=== PATIENT | female | born 1990 | race Caucasian/White ===

== ENCOUNTER 2017-07-25 20:47 | Inpatient (IN) | payer OTHER ==
[~2017-07-25] VITALS: Ht 170.2 cm; Wt 87.7 kg
[2017-07-25 23:52] VITALS: PULSE 110
[2017-07-26] VITALS (12 sets, daily range): BP systolic 110–117; BP diastolic 56–66; PULSE 70–122; RESP 17–20; Ht 170.2 cm; Wt 87.7 kg
[2017-07-26] MEDS ORDERED: ALB.5NB20 INHALATION (00:24)
[2017-07-26] MEDS ORDERED: MOME13HF INHALATION (00:24)
[2017-07-26] MEDS ORDERED: ALBU2.5V3 NEB (00:24)
[2017-07-26] MEDS ORDERED: IPRATROPIUM (NEB) 0.5 MG/2.5 ML AMP NEB PRN (00:30)
[2017-07-26] MEDS ORDERED: NACL 0.9% 3 ML SYG IV SCH (00:30)
[2017-07-26] MEDS ORDERED: ONDANSETRON 4 MG INJ IV PRN (00:30)
[2017-07-26] MEDS ORDERED: ACETAMINOPHEN 325 MG TAB PO PRN (00:30)
[2017-07-26] MEDS ORDERED: morphine 2 MG INJ IV PRN (00:30)
[2017-07-26] MEDS: SOD CHLORIDE 0.9% 1,000 ML IV SCH ×4 (00:45→20:15)
[2017-07-26] MEDS: LEVALBUTEROL (NEB) 0.31 MG/3 ML AMP HHN PRN ×4 (01:17→19:37)
[2017-07-26 06:52] LABS: ABNORMAL IP MESSAGE 1; LYMPHOCYTES # 0.5 10^3/ul (0.8-2.9); LYMPHOCYTES % 10.9 % (15.0-51.0); MEAN CORPUSCULAR HEMOGLOBIN 29.8 pg (29.0-33.0); MEAN CORPUSCULAR HGB CONC 35.9 g/dl (32.0-37.0); MEAN PLATELET VOLUME 10.9 fl (7.4-10.4); MONOCYTE # 0.3 10^3/ul (0.3-0.9); MONOCYTES % 6.8 % (0.0-11.0); NEUTROPHIL # 3.9 10^3/ul (1.6-7.5); NEUTROPHILS % 82.1 % (39.0-77.0); PLATELET COUNT 189 10^3/UL (140-415); RED CELL DISTRIBUTION WIDTH 14.1 % (11.5-14.5); WHITE BLOOD COUNT 4.7 10^3/ul (4.8-10.8)
[2017-07-26 07:06] LABS: POSITIVE DIFF @See below
[2017-07-26 07:25] LABS: ALBUMIN 3.6 g/dl (3.3-4.9); ALBUMIN/GLOBULIN RATIO 1.12; BILIRUBIN,INDIRECT 0.2 mg/dl (0-1.1); BILIRUBIN,TOTAL 0.2 mg/dl (0.2-1.3); CALCIUM 8.7 mg/dl (8.4-10.2); CREATININE 0.62 mg/dl (0.44-1.00); MAGNESIUM 2.1 mg/dl (1.7-2.5); TOTAL PROTEIN 6.8 g/dl (6.1-8.1)
[2017-07-26] MEDS: METHYLPREDNISOLONE 125 MG INJ IV SCH ×2 (08:12→20:39)
[2017-07-26] MEDS: HEPARIN 5,000 UNIT/0.5 ML VIAL SC SCH ×2 (08:34→20:35)
--- NOTE | 2017-07-26 09:38 | HP ---
Date/Time of Note Date/Time of Note DATE: 07/26/17 TIME: 09:35 Assessment/Plan VTE Prophylaxis VTE Prophylaxis Intervention: SCD's Lines/Catheters IV C[facility]ter Type [facility]from [facility] Saline Lock Urinary Cath still in place: No Assessment/Plan Assessment/Plan ASSESSMENT 26-year-old female with history of asthma diagnosed when she was a child presents with shortness of breath and wheezing secondary to asthma exacerbation PLAN Supplemental oxygen, bronchodilators, antibiotics and steroid. HPI/ROS Admit Date/Time Admit Date/Time Jul 25, 2017 at 23:41 Hx of Present Illness This is a 26-year-old female with a history of asthma diagnosed as a child who initially presented to an outside hospital complaining of shortness of breath and wheezing. She reported associated cough productive of small amounts of whitish and at times greenish sputum. She also reported having had fever and chills 1 day. Patient was treated with bronchodilators and steroid at the outside hospital and there was transferred to [facility] for insurance reasons. She said her asthma has been controlled lately and nowadays only goes to the hospital or have ER visits about once a year. She uses Dulera on a daily basis as needed albuterol. She denied history of intubation PMH/Family/Social Social History Smoking Status: Former smoker Exam/Review of Systems Vital Signs Vitals Vital Signs Date Time Temp Pulse Resp B/P Pulse Ox O2 Delivery O2 Flow Rate FiO2 07/26/17 08:12 122 07/26/17 08:07 98.5 18 117/56 99 07/26/17 07:46 Nasal Cannula 2.0 Intake and Output 07/25/17 07/25/17 07/26/17 15:00 23:00 07:00 Intake Total 1100 ml Balance 1100 ml Exam Constitutional: alert, oriented, well developed Head: atraumatic, normocephalic Eyes: EOMI, PERRL Respiratory: other (There is minimal expiratory wheeze mainly in the right basilar area) Cardiovascular: other Gastrointestinal: non-tender, soft Extremities: normal pulses Labs Result Diagram: 07/26/17 0611 07/26/17 0611 Medications Medications Current Medications Sodium Chloride (NS) 1,000 ml @ 100 mls/hr Q10H IV Last administered on t 00:45; Admin Dose 100 MLS/HR; Start 07/26/17 at 00:15; Stop 07/26/17 at 23: 00 Ondansetron HCl (Zofran Inj) 4 mg Q6H PRN IV NAUSEA AND/OR VOMITING; Start 07/26/17 at 00:30 Methylprednisolone Sodium Succinate (Solu-Medrol) 60 mg Q12 IV Last administered on 07/26/17 08:12; Admin Dose 60 MG; Start 07/26/17 at 09:00 Acetaminophen (Tylenol Tab) 650 mg Q6H PRN PO PAIN LEVEL 1-3 OR FEVER; Start 07/26/17 at 00:30 Morphine Sulfate (morphine) 2 mg Q4H PRN IV PAIN LEVEL 7-10; Start 07/26/17 at 00:30 Heparin Sodium (Porcine) (Heparin (5000 Units/0.5 ml)) 5,000 unit Q12 SC Last administered on 07/26/17 08:34; Admin Dose 5,000 UNIT; Start 07/26/17 at 09:00 Influenza Virus Vaccine (Fluzone) 0.5 ml ONCE ONCE IM* ; Start 07/27/17 at 09:00 ; Stop 07/27/17 at 09:01 DEEPIKA MARCELO MD Jul 26, 2017 09:38
[2017-07-26] MEDS ORDERED: GUAIFENESIN/CODEINE 5ML CUP PO PRN (10:00)
[2017-07-26] MEDS: SALMETEROL/FLUTICASONE 250/50 INHA INH SCH ×2 (10:00→20:36)
[2017-07-26] MEDS: LEVOFLOXACIN 500MG/D5W (PMX) 100 ML IVPB SCH (11:01)
[2017-07-26 11:23] LABS: AADO2 Arterial 45.7 mmHg (7.0-24.0); Allen Test ACCEPTAB; Arterial Base Excess 1.7 mmol/L (-3.0-3); Arterial COHb 0.2 % (0.0-3.0); Arterial Fraction of Oxyhgb 93.7 % (93.0-99.0); Arterial HCO3 24.1 mmol/L (22.0-26.0); Arterial MetHb 0.2 % (0.0-1.5); Arterial Total Hemglobin 15.1 g/dl (12.0-18.0); MODE ROOM AIR
[2017-07-26] MEDS: IPRATROPIUM (NEB) 0.5 MG/2.5 ML AMP NEB SCH ×5 (12:40→23:06)
[2017-07-27] VITALS (10 sets, daily range): BP systolic 101–116; BP diastolic 55–65; PULSE 60–85; RESP 18–20
[2017-07-27] MEDS: IPRATROPIUM (NEB) 0.5 MG/2.5 ML AMP NEB SCH ×4 (02:01→12:41)
[2017-07-27 08:33] LABS: HEMATOCRIT 41.4 % (37.0-47.0); HEMOGLOBIN 14.1 g/dl (12.0-16.0); LYMPHOCYTES # 0.8 10^3/ul (0.8-2.9); LYMPHOCYTES % 15.5 % (15.0-51.0); MEAN CORPUSCULAR HEMOGLOBIN 28.8 pg (29.0-33.0); MEAN CORPUSCULAR HGB CONC 34.1 g/dl (32.0-37.0); MEAN CORPUSCULAR VOLUME 84.5 fl (82.0-101.0); MEAN PLATELET VOLUME 10.8 fl (7.4-10.4); MONOCYTE # 0.5 10^3/ul (0.3-0.9); MONOCYTES % 9.8 % (0.0-11.0); NEUTROPHIL # 3.6 10^3/ul (1.6-7.5); NEUTROPHILS % 74.3 % (39.0-77.0); PLATELET COUNT 216 10^3/UL (140-415); RED CELL DISTRIBUTION WIDTH 14.2 % (11.5-14.5); WHITE BLOOD COUNT 4.9 10^3/ul (4.8-10.8)
[2017-07-27] MEDS ORDERED: INFLUENZA VIRUS VACCINE 0.5 ML (DISPENSING) IM* ONE (09:00)
[2017-07-27 09:03] LABS: CALCIUM 8.9 mg/dl (8.4-10.2); CREATININE 0.65 mg/dl (0.44-1.00); MAGNESIUM 1.8 mg/dl (1.7-2.5); PHOSPHORUS 3.4 mg/dl (2.5-4.9); POTASSIUM 4.1 mmol/L (3.5-5.1)
[2017-07-27] MEDS: LEVOFLOXACIN 500MG/D5W (PMX) 100 ML IVPB SCH (09:07)
[2017-07-27] MEDS: METHYLPREDNISOLONE 125 MG INJ IV SCH (09:07)
[2017-07-27] MEDS: SALMETEROL/FLUTICASONE 250/50 INHA INH SCH (09:07)
[2017-07-27] MEDS: HEPARIN 5,000 UNIT/0.5 ML VIAL SC SCH (09:27)
--- NOTE | 2017-07-27 14:40 | PDOCDIS ---
Discharge Instructions CONDITION Patient Condition: Good HOME CARE INSTRUCTIONS: Diet Instructions: Regular ACTIVITY: Activity Restrictions: No Restrictions FOLLOW UP/APPOINTMENTS Follow-up Plan F/U WITH YOUR PCP IN 1-2 WEEKS OMAR STEWART Jul 27, 2017 14:40
[2017-07-27] MEDS ORDERED: PRED20TA PO (14:41)
--- NOTE | 2017-07-28 18:58 | DS ---
Date/Time of Note Date/Time of Note DATE: 07/28/17 TIME: 18:55 Discharge Summary Admission/Discharge Info Admit Date/Time Jul 25, 2017 at 23:41 Discharge Date/Time Jul 27, 2017 at 16:10 Discharge Diagnosis 1. Asthma exacerbation-resolved Continue home meds Discharged with prednisone Patient Condition: Good Hospital Course Patient is a 26-year-old female with a history of asthma, patient presents with asthma exacerbation. Patient was given antibiotics, breathing treatments and steroids and her exacerbation did resolve. Patient does have home maintenance inhalers as well as albuterol for breakthrough episodes. Patient does follow- up with physician for management of her asthma. Patient's asthma exacerbation did resolve and was felt to be stable for DC, on the day of discharge patient vitals, labs and physical exam are stable she no acute complaints and questions are answered. Home Meds Active Scripts Prednisone* (Prednisone*) 20 Mg Tab, 40 MG PO DAILY, #10 TAB Prov:OMAR STEWART 07/27/17 Reported Medications Mometasone-Formoterol (Dulera) 200-5 Mcg/Inh - 13 Gm Hfa.aer.ad, 2 PUFFS INHALATION BID, #1 INHALER 07/26/17 Albuterol Sulfate* (Albuterol Sulfate* Neb) 20 Ml Nebu, 8.5 GM INHALATION Q4H, # 1 BOTTLE 07/26/17 Albuterol Sulfate* (Albuterol Sulfate* Neb) 0.083%-3 Ml Neb, 1.25 MG NEB Q4H, # 30 VIAL 07/26/17 Follow-up Plan F/U WITH YOUR PCP IN 1-2 WEEKS Primary Care Provider Not On Staff Doctor Time spent on discharge: > 30 minutes OMAR STEWART Jul 28, 2017 18:58
== END 2017-07-27 16:10 | disposition home or self-care (01) | DRG 203 ==
LOC: TEL 23:41
PROVIDERS: ADMIT Family Medicine; ATTEND Family Medicine
DX: J45.901 Unspecified asthma with (acute) exacerbation (principal)
CPT/HCPCS: 36600; 80048; 80053; 82803; 83036; 83735; 84100; 85025; 87081; 90686; 94640; 94664; J1644; J1956; J2930; J7030